=== PATIENT | female | born 1940 | race Caucasian/White ===

== ENCOUNTER → 2017-05-27 | Outpatient (CLI) | payer MEDICARE ==
[~2017-05-27] MED LIST: ALPR0.5T72 PO; ASPI-266 PO; BNZ20T PO; CLOB15CR3 TP; CLPD75T PO; HYCOSAMINE; METO25TA2 PO; MTF500T PO; NTR.4SL SL; PNT40TEC PO; PREMARIN VAG CREAM VG; SIMV40TA4 PO; SITA100T PO; VITAMIN B12 INJ; [UNRECOGNIZED DRUG - CODE] PO
--- NOTE | 2017-05-27 19:06 | Diagnostic Imaging Report ---
INDICATION: Twisting injury while cleaning floors on knees. Now with lower rib pain. TECHNIQUE: Two-view chest at 5:51 p.m. CORRELATION STUDY: None. FINDINGS: The heart size, mediastinal configuration and pulmonary vasculature are within normal limits. Lung escalante are mildly hyperinflated but overall clear without significant infiltrate, effusion, or pneumothorax. Visualized osseous structures are unremarkable. IMPRESSION: 1. No radiographic evidence for acute abnormality of the chest. Dictated by: Dictated on workstation # [id number]
--- NOTE | 2017-05-27 19:14 | Diagnostic Imaging Report ---
INDICATION: Twisting injury while cleaning floors on knees six weeks prior. Now with left-sided rib pain. TECHNIQUE: Three views of left ribs. CORRELATION STUDY: None. FINDINGS: Left ribs are intact. No acute displaced fracture. Visualized left lung field is clear. IMPRESSION: 1. Unremarkable examination of left ribs. Dictated by: Dictated on workstation # [id number]
== END ==
LOC: RAD 17:19
PROVIDERS: ATTEND Internal Medicine
DX: R07.89 Other chest pain (principal); R07.81 Pleurodynia
CPT/HCPCS: 71020; 71100

== ENCOUNTER → 2017-10-18 | Outpatient (CLI) | payer MEDICARE ==
--- NOTE | 2017-10-18 12:55 | Diagnostic Imaging Report ---
INDICATION: Left-sided rib pain and twisting injury. TIME OF EXAM: 12:22 PM. FINDINGS: Multiple views of the left ribs were obtained. No displaced rib fracture is detected. No parenchymal contusion, effusion, or pneumothorax is seen. IMPRESSION: No acute abnormality is detected. Dictated by: Dictated on workstation # [id number]
== END ==
LOC: RAD 11:50
PROVIDERS: ATTEND Internal Medicine
DX: R07.81 Pleurodynia (principal); W50.2XXA Accidental twist by another person, initial encounter
CPT/HCPCS: 71100

== ENCOUNTER 2019-06-22 20:55 | Emergency (ER) | payer MEDICARE ==
[~2019-06-22] VITALS: Ht 170.2 cm; Wt 77.3 kg
--- NOTE | 2019-06-22 21:43 | ED Back Pain ---
General Chief Complaint: Back Problems Stated Complaint: BACK SPASMS, NAUSEA Nursing Triage Note: Pt amb to room #9 with c/o Rt flank pain radiating to rt lower abd associated with nausea. Pt reports onset of symptoms to be upon rise on this day. Reports increase in severity throughout this day. Denies urinary symptoms. Pt states, "it feels like contractions." Nursing Sepsis Screen: No Definite Risk Source of Information: Patient, Family Exam Limitations: No Limitations History of Present Illness Date Seen by Provider: Jun 22, 2019 Time Seen by Provider: 21:23 Initial Comments Patient resents to ER by private conveyance with her family and chief complaint been a green party all day today and woke up around 3:00 this morning with some right low mid back pain around her costovertebral angle. It radiates towards her right flank. She says it is crampy like contraction pains. It's been off and on all throughout the day and she says she can no longer stand it so she came to the ER to have it checked out. She has no history of kidney stones. She is not having any burning itching or rash. She also has felt some epigastric indigestion and nausea at times. Pain does not seem to be worse after eating. No diarrhea or vomiting. No fevers or chills. She has a history of 2 stents years ago and is not on any blood thinners except for a daily aspirin. Allergies and Home Medications Allergies Coded Allergies: No Known Drug Allergies (Unverified , 12/25/13) Home Medications Alprazolam 0.5 Mg Tab.rapdis, 1 EACH PO HS, (Reported) Aspirin Unknown Strength Tablet.dr, Unknown Dose PO DAILY, (Reported) Benazepril Hcl 20 Mg Tab, 20 MG PO HS, (Reported) Calcium Cmb No.1-P4-Knhycpincf 1 Each Tablet, 1 EACH PO DAILY, (Reported) Clopidogrel Bisulfate 75 Mg Tab, 75 MG PO DAILY Prescribed by: JAMIL MORAN on 03/09/14 1139 Metformin Hcl 500 Mg Tablet, 1 EACH PO DAILY, (Reported) Metoprolol Tartrate 25 Mg Tablet, 1 TAB PO BID, (Reported) Nitroglycerin 0.4 Mg Subl, 0.4 MG SL NEEDED, (Reported) Pantoprazole Sodium 40 Mg Tab, 40 MG PO DAILY@0700 Prescribed by: JAMIL MORAN on 03/09/14 1139 Simvastatin 40 Mg Tablet, 40 MG PO DAILY, (Reported) Sitagliptin Phosphate 100 Mg Tablet, 1 EACH PO DAILY, (Reported) [Hycosamine Sl] , 1 TAB SL Q4H PRN for PAIN, (Reported) [Premarin Vag Cream] , 0.5 VG 2XWEEKLY, (Reported) [Vitamin B12] , INJ UD, (Reported) Patient Home Medication List Home Medication List Reviewed: Yes Review of Systems Constitutional: No chills, No fever EENTM: No ear discharge, No ear pain Respiratory: No cough, No short of breath Cardiovascular: No chest pain, No edema Gastrointestinal: No abdominal pain, No constipation, No diarrhea Past Ghhswae-Yclqqb-Suzazq Hx Patient Social History Alcohol Use: Denies Use Recreational Drug Use: No Smoking Status: Never a Smoker 2nd Hand Smoke Exposure: No Recent Foreign Travel: No Contact w/Someone Who Travel: No Recent Infectious Disease Expo: No Immunizations Up To Date Date of Pneumonia Vaccine: May 07, 2013 Past Medical History Surgeries: Yes (Cardiac stents x2) Hysterectomy Respiratory: No Cardiac: Yes Neurological: No Reproductive Disorders: No FIELD DIRECTOR History: Hysterectomy Genitourinary: No Gastrointestinal: Yes Hiatal Hernia Musculoskeletal: Yes Arthritis Endocrine: Yes Diabetes, Non-Insulin dep Cancer: No Psychosocial: No Integumentary: No Blood Disorders: No Physical Exam Vital Signs Vital Signs - First Documented 06/22/19 21:12 Temp 37.0 Pulse 81 Resp 17 B/P (MAP) 192/98 (129) Pulse Ox 97 O2 Delivery Room Air Capillary Refill : Less Than 3 Seconds Height, Weight, BMI Height: 5'7.00" Weight: 167lbs. 0.0oz. 75.037941ay; 26.00 BMI Method:Stated General Appearance: WD/WN, Mild Distress HEENT: PERRL/EOMI, Pharynx Normal, Moist Mucous Membranes Neck: Full Range of Motion, Normal Inspection Cardiovascular: Regular Rate, Rhythm, No Edema, Normal Peripheral Pulses Respiratory: No Accessory Muscle Use, No Respiratory Distress Gastrointestinal: Normal Bowel Sounds, No Organomegaly, Non Tender, Soft Back: Normal Inspection, No Vertebral Tenderness, CVA Tenderness (R); No Muscle Spasm, No Vertebral Tenderness Extremity: Normal Capillary Refill, Normal Inspection, No Pedal Edema Neurologic/Psychiatric: Alert, Oriented x3 Skin: Normal Color, Warm/Dry Progress/Results/Core Measures Results/Orders Lab Results Laboratory Tests Test 06/22/19 21:22 06/22/19 21:28 Range/Units Urine Color YELLOW Urine Clarity CLEAR Urine pH 6.5 5-9 Urine Specific Freedom 1.010 L 1.016-1.022 Urine Protein NEGATIVE NEGATIVE Urine Glucose (UA) NEGATIVE NEGATIVE Urine Ketones NEGATIVE NEGATIVE Urine Nitrite NEGATIVE NEGATIVE Urine Bilirubin NEGATIVE NEGATIVE Urine Urobilinogen NORMAL NORMAL MG/DL Urine Leukocyte Esterase NEGATIVE NEGATIVE Urine RBC (Auto) NEGATIVE NEGATIVE Urine RBC NONE /HPF Urine WBC NONE /HPF Urine Squamous Epithelial Cells 0-2 /HPF Urine Crystals NONE /LPF Urine Bacteria NEGATIVE /HPF Urine Casts NONE /LPF Urine Mucus NEGATIVE /LPF Urine Culture Indicated NO White Blood Count 7.8 4.3-11.0 10^3/uL Red Blood Count 4.18 L 4.35-5.85 10^6/uL Hemoglobin 13.2 11.5-16.0 G/DL Hematocrit 39 35-52 % Mean Corpuscular Volume 93 80-99 FL Mean Corpuscular Hemoglobin 32 25-34 PG Mean Corpuscular Hemoglobin Concent 34 32-36 G/DL Red Cell Distribution Width 12.6 10.0-14.5 % Platelet Count 229 130-400 10^3/uL Mean Platelet Volume 10.0 7.4-10.4 FL Neutrophils (%) (Auto) 57 42-75 % Lymphocytes (%) (Auto) 32 12-44 % Monocytes (%) (Auto) 10 0-12 % Eosinophils (%) (Auto) 1 0-10 % Basophils (%) (Auto) 0 0-10 % Neutrophils # (Auto) 4.5 1.8-7.8 X 10^3 Lymphocytes # (Auto) 2.5 1.0-4.0 X 10^3 Monocytes # (Auto) 0.7 0.0-1.0 X 10^3 Eosinophils # (Auto) 0.1 0.0-0.3 10^3/uL Basophils # (Auto) 0.0 0.0-0.1 10^3/uL Sodium Level 140 135-145 MMOL/L Potassium Level 3.9 3.6-5.0 MMOL/L Chloride Level 105 98-107 MMOL/L Carbon Dioxide Level 24 21-32 MMOL/L Anion Gap 11 5-14 MMOL/L Blood Urea Nitrogen 16 7-18 MG/DL Creatinine 1.20 0.60-1.30 MG/DL Estimat Glomerular Filtration Rate 44 BUN/Creatinine Ratio 13 Glucose Level 119 H 70-105 MG/DL Calcium Level 9.7 8.5-10.1 MG/DL Corrected Calcium 9.3 8.5-10.1 MG/DL Total Bilirubin 0.3 0.1-1.0 MG/DL Aspartate Amino Transf (AST/SGOT) 22 5-34 U/L Alanine Aminotransferase (ALT/SGPT) 15 0-55 U/L Alkaline Phosphatase 80 40-136 U/L Total Protein 7.3 6.4-8.2 GM/DL Albumin 4.5 3.2-4.5 GM/DL Lipase 32 8-78 U/L My Orders Orders - NEMESIO CUEVAS Cbc With Automated Diff (06/22/19 21:32) Comprehensive Metabolic Panel (06/22/19 21:32) Ua Culture If Indicated (06/22/19 21:32) Ketorolac Injection (Toradol Injection) (06/22/19 21:45) Ed Iv/Invasive Line Start (06/22/19 21:32) Lipase (06/22/19 21:37) Ed Iv/Invasive Line Start (06/22/19 22:03) Ns Iv 1000 Ml (Sodium Chloride 0.9%) (06/22/19 22:03) Iohexol Injection (Omnipaque 350 Mg/Ml 1 (06/22/19 22:30) Ns (Ivpb) (Sodium Chloride 0.9% Ivpb Bag (06/22/19 22:30) Medications Given in ED Current Medications Medications Dose Ordered Sig/Rebecca Route Start Time Stop Time Status Last Admin Dose Admin Iohexol 100 ml ONCE ONCE IV 06/22/19 22:30 06/22/19 23:10 DC 06/22/19 22:36 100 ML Ketorolac Tromethamine 30 mg ONCE ONCE IVP 06/22/19 21:45 06/22/19 21:46 DC 06/22/19 21:40 30 MG Sodium Chloride 80 ml ONCE ONCE IV 06/22/19 22:30 06/22/19 23:10 DC 06/22/19 22:36 80 ML Vital Signs/I&O 06/22/19 21:12 Temp 37.0 Pulse 81 Resp 17 B/P (MAP) 192/98 (129) Pulse Ox 97 O2 Delivery Room Air Blood Pressure Mean: 129 POS Progress Progress Note : Time: 21:42 Progress Note Kidney stone, much less likely large intestine versus gallbladder pancreas. We'll obtain labs and treating lipase. Urinalysis. If there is blood in the urine and plan to do a CT without IV contrast. Diagnostic Imaging Diagonstic Imaging: CT Plain Films/CT/US/NM/MRI: abdomen, pelvis Comments 1-2 mm stone in the right distal ureter with mild upstream hydronephrosis. Multi septated left ovarian cystic lesion measuring 6.2 x 5.4 x 7.1 cm significantly increased in size from prior imaging. 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 Recommend pelvic ultrasound and/or pelvic MRI as an outpatient. Sigmoid diverticulosis without diverticulitis. Dilated intrahepatic and extrahepatic biliary tree, and common bile duct measuring 1.1 cm without obstructing stone or mass. Reviewed: Reviewed by Me Departure Impression Primary Impression: Ureteral calculus, right Additional Impression: Ovarian mass, left Disposition: 01 HOME, SELF-CARE Condition: Improved Departure-Patient Inst. Decision time for Depature: 23:53 Referrals: JAMIL MORAN DO (PCP/Family) Primary Care Physician NAVA DAWSON MD Patient Instructions: How to Strain Your Urine, Kidney Stones (DC) Add. Discharge Instructions: All discharge instructions reviewed with patient and/or family. Voiced understanding. Scripts Cephalexin (Keflex) 500 Mg Capsule 500 MG PO BID for 7 Days, #14 CAP 0 Refills Prov: NEMESIO CUEVAS 06/23/19 Ondansetron (Ondansetron Odt) 4 Mg Tab.rapdis 4 MG PO Q6H PRN for NAUSEA/VOMITING, #8 TAB 0 Refills Prov: NEMESIO CUEVAS 06/23/19 Hydrocodone Bit/Acetaminophen (Hydrocodone/Acetaminophen 5/325mg Tablet) 1 Tab Tab 1 EACH PO Q4-6HR PRN for PAIN-MODERATE MDD 10 for 3 Days, #14 TAB 0 Refills Prov: NEMESIO CUEVAS 06/23/19 Tamsulosin HCl (Flomax) 0.4 Mg Cap 0.4 MG PO DAILY for 7 Days, #7 CAP 0 Refills Prov: NEMESIO CUEVAS 06/23/19 Copy Copies To 1: JAMIL MORAN TITUS J Jun 22, 2019 21:43 POS
[2019-06-22] MEDS ORDERED: KETOROLAC 30 MG/ML VIAL IVP ONE (21:45)
[2019-06-22 21:50] LABS: BASOPHILS % (AUTO) 0 % (0-10); EOSINOPHILS # (AUTO) 0.1 10^3/uL (0.0-0.3); EOSINOPHILS % (AUTO) 1 % (0-10); HEMATOCRIT 39 % (35-52); HEMOGLOBIN 13.2 G/DL (11.5-16.0); LYMPHOCYTES # (AUTO) 2.5 X 10^3 (1.0-4.0); LYMPHOCYTES % (AUTO) 32 % (12-44); MEAN CORPUSCULAR HEMOGLOBIN 32 PG (25-34); MEAN CORPUSCULAR HGB CONC 34 G/DL (32-36); MEAN CORPUSCULAR VOLUME 93 FL (80-99); MONOCYTES # (AUTO) 0.7 X 10^3 (0.0-1.0); MONOCYTES % (AUTO) 10 % (0-12); NEUTROPHILS # (AUTO) 4.5 X 10^3 (1.8-7.8); NEUTROPHILS % (AUTO) 57 % (42-75); PLATELET COUNT 229 10^3/uL (130-400); RED CELL DISTRIBUTION WIDTH 12.6 % (10.0-14.5); WHITE BLOOD COUNT 7.8 10^3/uL (4.3-11.0)
[2019-06-22 21:57] LABS: BILIRUBIN,URINE NEGATIVE (NEGATIVE); GLUCOSE, URINE (UA) NEGATIVE (NEGATIVE); KETONES,URINE NEGATIVE (NEGATIVE); LEUKOCYTE ESTERASE ,URINE NEGATIVE (NEGATIVE); NITRITE,URINE NEGATIVE (NEGATIVE); PH,URINE 6.5 (5-9); PROTEIN,URINE NEGATIVE (NEGATIVE)
[2019-06-22 21:58] LABS: BACTERIA,URINE NEGATIVE /HPF; CLARITY,URINE CLEAR; COLOR,URINE YELLOW; SQUAMOUS EPITHELIAL CELL,UR 0-2 /HPF
[2019-06-22] MEDS ORDERED: NS IV 1000 ML 1,000 ML IV SCH (22:03)
[2019-06-22 22:10] LABS: ALBUMIN 4.5 GM/DL (3.2-4.5); CALCIUM 9.7 MG/DL (8.5-10.1); CREATININE SERUM 1.2 MG/DL (0.60-1.30); POTASSIUM 3.9 MMOL/L (3.6-5.0); TOTAL PROTEIN 7.3 GM/DL (6.4-8.2)
[2019-06-22] MEDS ORDERED: IOHEXOL 350 MG/ML 100 ML (OMNIPAQUE 350) VIAL IV ONE (22:30)
[2019-06-22] MEDS ORDERED: NS 100 ML (IVPB) BAG IV ONE (22:30)
[2019-06-22 22:40] LABS: BILIRUBIN,TOTAL 0.3 MG/DL (0.1-1.0)
[2019-06-23] MEDS ORDERED: TMSL.4C PO (00:05)
[2019-06-23] MEDS ORDERED: ACHD5005 PO (00:05)
[2019-06-23] MEDS ORDERED: CEPH-507 PO (00:05)
[2019-06-23] MEDS ORDERED: ONDA4TAB11 PO (00:05)
[2019-06-23] MEDS ORDERED: RX-ONDANSETRON 4 MG ODT (ZOFRAN) PPK #4 PO STA (00:06)
[2019-06-23] MEDS ORDERED: RX-HYDROCODONE/APAP 5/325 MG #4 TAB PK PO PRN (00:15)
[2019-06-23 00:19] VITALS: BP 167/106
--- NOTE | 2019-06-23 06:22 | Diagnostic Imaging Report ---
PROCEDURE: CT abdomen and pelvis with contrast, rule out appendicitis. TECHNIQUE: Multiple contiguous axial images were obtained through the abdomen and pelvis after the administration of intravenous contrast. INDICATION: Abdominal pain. COMPARISON: CT abdomen and pelvis without contrast 06/19/2016. FINDINGS: Stable 0.7 cm pulmonary nodule in the left costophrenic angle should be benign. Simple cysts in the liver. The gallbladder, pancreas, spleen and adrenals are negative. Simple appearing cysts in both kidneys. Prominent caliber right ureter above the level of the pelvic brim without obstructing lesion identified, may be physiologic. The left ureter is negative. Partially opacified bladder is unremarkable. Advanced colonic diverticulosis. Indeterminate lobulated cystic structure in the left pelvis measures 6.5 x 6.3 cm, previously 3.3 x 3.7 cm. Hysterectomy. No free intraperitoneal air or fluid. No lymphadenopathy. No evidence of bowel obstruction or inflammation. No acute osseous findings. IMPRESSION: 1. Advanced colonic diverticulosis without evidence of active diverticulitis. 2. Lobulated cystic mass in the left pelvis has generally benign features. This has grown from approximately 3.7 cm on 06/19/2016 to 6.5 cm today. This may be ovarian in origin. Other diagnostic considerations might include a lymphocele. The uterus is surgically absent. 3. Mild right ureterectasis to the level of the pelvic brim without obstructing lesion identified. This may be physiologic and is only mildly more prominent compared to the 2016 exam. Dictated by: Dictated on workstation # [id number]
== END 2019-06-23 00:19 | disposition home or self-care (01) ==
LOC: EDUNIT# 20:55 → ER 20:57
DX: N13.2 Hydronephrosis with renal and ureteral calculous obstruction (principal); N83.8 Other noninflammatory disorders of ovary, fallopian tube and broad ligament; E11.9 Type 2 diabetes mellitus without complications; Z79.82 Long term (current) use of aspirin; Z79.02 Long term (current) use of antithrombotics/antiplatelets; Z79.84 Long term (current) use of oral hypoglycemic drugs; Z90.710 Acquired absence of both cervix and uterus; Z95.5 Presence of coronary angioplasty implant and graft
CPT/HCPCS: 36415; 74177; 80053; 81000; 83690; 85025; 96361; 96374

== ENCOUNTER → 2019-07-25 | Outpatient (CLI) | payer MEDICARE ==
[~2019-07-25] MED LIST changes: +ACHD5005 PO; +CEPH-507 PO; +NITR-65 PO; +ONDA4TAB11 PO; +TAMS0.4C98 PO; +TRAM50TA2 PO
--- NOTE | 2019-07-25 14:33 | Diagnostic Imaging Report ---
INDICATION: Right-sided kidney stone. TIME OF EXAMINATION: 12:45 PM. FINDINGS: A single view of the abdomen demonstrates the bowel gas pattern to be unremarkable. Pelvic calcifications are noted, consistent with phleboliths. No definite radiopaque urinary tract calculi are seen. IMPRESSION: No radiopaque urinary tract calculi are detected. Dictated by: Dictated on workstation # [id number]
== END ==
LOC: RAD 12:21
PROVIDERS: ATTEND Internal Medicine
DX: N83.292 Other ovarian cyst, left side (principal)
CPT/HCPCS: 74018

== ENCOUNTER → 2019-07-25 | Outpatient (CLI) | payer MEDICARE | END | disposition home or self-care (01) | LOC: PREOP 15:22 | PROVIDERS: ATTEND Urology | DX: Z01.818 Encounter for other preprocedural examination (principal) ==

== ENCOUNTER 2019-07-26 07:14 | Day surgery (SDC) | payer MEDICARE ==
[~2019-07-26] VITALS: Ht 168 cm; Wt 81.4 kg
[2019-07-26] VITALS (11 sets, daily range): BP systolic 109–141; BP diastolic 62–79
[~2019-07-26 07:14] MED LIST changes: -NITR-65 PO; -TAMS0.4C98 PO; +TMSL.4C PO; -TRAM50TA2 PO
[2019-07-26] MEDS ORDERED: cefTRIAXone FOR IV USE 1,000 MG in WATER (STERILE) FOR INJECTION 10 ML IV ONE (07:45)
[2019-07-26] MEDS ORDERED: TRM50T PO (07:46)
--- NOTE | 2019-07-26 07:48 | Progress Note-Pre Operative ---
Pre-Operative Progress Note H&P Reviewed The H&P was reviewed, patient examined and no changes noted. Date Seen by Provider: Jul 26, 2019 Time Seen by Provider: 07:48 Date H&P Reviewed: Jul 26, 2019 Time H&P Reviewed: 07:48 Pre-Operative Diagnosis: RT URETERAL STONE NAVA DAWSON MD Jul 26, 2019 07:48 POS
[2019-07-26] MEDS: LACTATED RINGERS 1,000 ML IV PRN ×2 (08:19→11:37)
[2019-07-26] MEDS ORDERED: fentaNYL INJECTION 100 MCG/2 ML AMP IV ONE (08:30)
[2019-07-26] MEDS ORDERED: fentaNYL INJECTION 100 MCG/2 ML AMP ONE ×2 (08:38→08:49)
[2019-07-26] MEDS ORDERED: ONDANSETRON 4 MG/2 ML (SDV) Z0FRAN ONE (08:49)
[2019-07-26] MEDS ORDERED: ROCURONIUM 10 MG/ML 5 ML SYRINGE IV ONE (08:49)
[2019-07-26] MEDS ORDERED: LIDOCAINE PF 2% 5 ML (XYLOCAINE) VIAL ONE (08:49)
[2019-07-26] MEDS ORDERED: proPOfol 200 MG/20 ML (DIPRIVAN) VIAL IV ONE (08:49)
[2019-07-26] MEDS ORDERED: DEXAMETHASONE 10 MG/ML (DECADRON) 1 ML VIAL ONE (08:49)
[2019-07-26] MEDS ORDERED: IOPAMIDOL 61% 30 ML (ISOVUE 300) VIAL IV ONE (08:50)
[2019-07-26] MEDS ORDERED: FUROSEMIDE 40 MG/4 ML INJ (LASIX) ONE (08:52)
[2019-07-26] MEDS ORDERED: KETOROLAC 30 MG/ML VIAL ONE (08:52)
--- NOTE | 2019-07-26 08:59 | Diagnostic Imaging Report ---
INDICATION: Calculus. Compared 07/25/2019 FINDINGS: Multiple pelvic calcifications largely if not entirely reflective of phleboliths are unchanged from prior. There is no bowel obstruction. No radiodense renal calcifications. IMPRESSION: Calcifications believed phleboliths. Dictated by: Dictated on workstation # [id number]
[2019-07-26] MEDS ORDERED: SEVOFLURANE (ULTANE) 15 ML INHAL SOLN ONE (10:35)
[2019-07-26] MEDS ORDERED: NEOSTIGMINE 3 MG/3 ML VIAL ONE (10:42)
[2019-07-26] MEDS ORDERED: GLYCOPYRROLATE 0.2 MG/ML (ROBINUL) 2 ML VIAL ONE (10:42)
--- NOTE | 2019-07-26 10:59 | Progress Note-Post Operative ---
Post-Operative Progess Note Surgeon (s)/Car Runner (s) Surgeon NAVA DAWSON MD Car Runner: NONE Pre-Operative Diagnosis RT URETERAL STONE Post-Operative Diagnosis SAME Procedure & Operative Findings Date of Procedure 07/26/19 Procedure Performed/Findings CYSTOSCOPY, RT RETROGRADE UROGRAM, AND RT URETEROSCOPY Anesthesia Type GENERAL Estimated Blood Loss Estimated blood loss (mL): NONE Specimens/Packing Specimens Removed NONE Packing: NONE NAVA DAWSON MD Jul 26, 2019 10:59 POS
--- NOTE | 2019-07-26 11:01 | Discharge Inst-Urology ---
Discharge Inst-Urology Reconcile Patient Problems Problems Reviewed?: Yes Final Diagnosis RT URETERAL STONE Patient Instructions/Follow Up Plan/Assessment/Instructions Please make appointment to been seen in office in 1 week Increase oral fluids for 48 hours and then as needed. Diet and Activity as tolerated. If questions or concerns contact your physician Or seek help at emergency department. NAVA DAWSON MD Jul 26, 2019 11:01 POS
[2019-07-26] MEDS ORDERED: morphine INJ 10 MG/ML 1ML (SYR OR VIAL) ONE (11:11)
[2019-07-26] MEDS ORDERED: morphine INJ 10 MG/ML 1ML (SYR OR VIAL) IVP ONE (11:15)
[2019-07-26] MEDS ORDERED: ONDANSETRON 4 MG/2 ML (SDV) Z0FRAN IVP PRN (11:15)
[2019-07-26] MEDS ORDERED: NITR-65 PO (11:57)
--- NOTE | 2019-07-26 17:33 | OPERATIVE REPORT ---
DATE OF SERVICE: 07/26/2019 PREOPERATIVE DIAGNOSIS: Right distal ureteral stone. POSTOPERATIVE DIAGNOSIS: Right distal ureteral stone. OPERATION PERFORMED: Cystoscopy, right retrograde urogram, right ureteroscopy. SURGEON: Jamil Dawson MD ANESTHESIA: General. COMPLICATIONS: None. DESCRIPTION OF PROCEDURE: Under satisfactory general anesthesia, the patient in lithotomy position, genitalia were prepped and draped in the usual sterile fashion. Noted a 3+ cystocele. Cystoscope was introduced in the bladder, which was essentially normal except for the cystocele. I went ahead and passed a 5-Mosotho and then a 6-Mosotho ureteral catheter into the right ureteral orifice dilated and to perform a retrograde urogram that showed no filling defects whatsoever. There was some narrowing of the ureter at the pelvic brim with mild dilatation, but no filling defect and complete emptying and good peristalsis of that segment as well as the whole ureter, which was completely emptied on withdrawing the catheter. I went ahead and removed the cystoscope, introduced the ureteroscope and again did not encounter any stone and up to the level of the questionable area. Again, no stones confirmed in an antegrade fashion, removed the ureteroscope. I reinserted the cystoscope to empty the bladder. The patient tolerated the procedure and anesthesia well and was sent to recovery room in stable condition. PLAN: We will see her back in the office in a week. If any question, I will order a noncontrast CT scan of the abdomen and pelvis. This was fully explained to her family. Job ID: [id number] DocumentID: [id number] Dictated Date: 07/26/2019 11:03:40 Heel Layer Date: 07/26/2019 17:32:47 Dictated By: JAMIL DAWSON MD
--- OUTSIDE RECORDS SUMMARY | 2019-08-20 19:24 | XMS REPORT | Continuity of Care Document ---
Author Organization Unknown Address Unknown Phone Unavailable Allergies Active Description Code Type Severity Reaction Onset Reported/Identified Relationship to Patient Clinical Status Yes No Known Drug Allergies [id number] Drug Allergy Unknown N/A 12/25/2013 Medications There is no data. Problems Date Dx Coded Attending Type Code Diagnosis Diagnosed By 02/02/2014 SUNIL HASSAN, GINGER Johnson Ot 530. 81 ESOPHAGEAL REFLUX 02/02/2014 GINGER BARBER MD Ot 553. 3 DIAPHRAGMATIC HERNIA 02/02/2014 GINGER BARBER MD Ot 562. 10 DIVERTICULOSIS COLON (W/O MENT OF HEMORR 02/02/2014 GINGER BARBER MD Ot V76. 51 SCREEN MAL NEOP-COLON 03/09/2014 Manolo CARLSON MD Ot 250.00 DIAB EBONI WO COMPL, TYPE II OR UNSPEC TY 03/09/2014 Manolo CARLSON MD Ot 272 .4 HYPERLIPIDEMIA NEC/NOS 03/09/2014 Manolo CARLSON MD Ot 300.00 ANXIETY STATE NOS 03/09/2014 Manolo CARLSON MD Ot 401 .9 HYPERTENSION NOS 03/09/2014 Manolo CARLSON MD Ot 411 .1 INTERMED CORONARY SYND 03/09/2014 Manolo CARLSON MD Ot 414.01 CORONARY ATHEROSCLEROSIS OF [place] CORON 03/09/2014 Manolo CARLSON MD Ot 414 .2 CHRONIC TOTAL OCCLUSION OF CORONARY [place] 03/09/2014 Manolo CARLSON MD Ot 414 .4 CORONARY ATHEROSCLEROSIS DUE TO [place] 03/09/2014 Manolo CARLSON MD Ot 553 .3 DIAPHRAGMATIC HERNIA 03/09/2014 Manolo CARLSON MD Ot V45.82 PERCUTANEOUS TRANSLUM CORON ANGIOPLASTY 03/09/2014 Manolo CARLSON MD Ot V58.69 OT MED,LT,CURRENT USE 06/23/2016 JAMIL MORAN DO Ot K76.89 OTHER SPECIFIED DISEASES OF LIVER 06/23/2016 MORAN DO, JAMIL Hubert Ot R10.13 EPIGASTRIC PAIN 07/10/2016 MORAN DO, JAMIL Hubert Ot K76.89 OTHER SPECIFIED DISEASES OF LIVER 07/10/2016 MORAN DO, JAMIL Hubert Ot R10.13 EPIGASTRIC PAIN 07/20/2016 MORAN DO, JAMIL Hubert Ot K76.89 OTHER SPECIFIED DISEASES OF LIVER 07/20/2016 MORAN DO, JAMIL Gaspar Ot R10.13 EPIGASTRIC PAIN 06/18/2017 MORAN DO, JAMIL Gaspar Ot R07.81 PLEURODYNIA 06/18/2017 MORAN DO, JAMIL Hubert Ot R07.89 OTHER CHEST PAIN 06/23/2017 MORAN DOJAMIL Ot R07.81 PLEURODYNIA 06/23/2017 MORAN DO JAMIL Hubert Ot R07.89 OTHER CHEST PAIN 10/18/2017 MORAN DOJAMIL Ot R07.81 PLEURODYNIA 10/18/2017 JAMIL MORAN DO Ot W50.2XXA ACCIDENTAL TWIST BY ANOTHER PERSON, INIT 11/09/2017 JAMIL MORAN DO Ot R07.81 PLEURODYNIA 11/09/2017 MORAN DO JAMIL Hubert Ot W50.2XXA ACCIDENTAL TWIST BY ANOTHER PERSON, INIT 11/10/2017 JAMIL MORAN DO Ot R07.81 PLEURODYNIA 11/10/2017 MORAN JAMIL MEREDITH Ot W50.2XXA ACCIDENTAL TWIST BY ANOTHER PERSON, INIT 06/23/2019 NEMESIO CUEVAS MD Ot E11. 9 TYPE 2 DIABETES MELLITUS WITHOUT COMPLIC 06/23/2019 NEMESIO CUEVAS MD Ot N13. 2 HYDRONEPHROSIS WITH RENAL AND URETERAL C 06/23/2019 NEMESIO CUEVAS MD Ot N83. 8 OTH NONINFLAMMATORY DISORD OF OVARY, FAL 06/23/2019 NEMESIO CUEVAS MD Ot R11. 0 NAUSEA 06/23/2019 NEMESIO CUEVAS MD, Ot Z79. 02 RESIDENTIAL (CURRENT) USE OF ANTITHROMBOTI 06/23/2019 NEMESIO CUEVAS MD, Ot Z79. 82 RESIDENTIAL (CURRENT) USE OF ASPIRIN 06/23/2019 NEMESIO CUEVAS MD, Ot Z79. 84 RESIDENTIAL (CURRENT) USE OF ORAL HYPOGLYC 06/23/2019 NEMESIO CUEVAS MD Ot Z90.710 ACQUIRED ABSENCE OF BOTH CERVIX AND UTER 06/23/2019 NEMESIO CUEVAS MD Ot Z95. 5 PRESENCE OF CORONARY ANGIOPLASTY IMPLANT 06/23/2019 TASHA KRAFT MD Ot 573.8 LIVER DISORDERS NEC 06/23/2019 TASHA KRAFT MD Ot 789.01 ABDOMINAL PAIN, RIGHT UPPER QUADRANT 06/23/2019 MORAN DOJAMIL Ot 789.00 ABDOMINAL PAIN, UNSPECIFIED SITE 06/23/2019 GINGER BARBER MD Ot V72. 84 EXAM PRE-OPERATIVE NOS 06/23/2019 MORAN DO, JAMIL Gaspar Ot K76.89 OTHER SPECIFIED DISEASES OF LIVER 06/23/2019 MORAN DOJAMIL Ot R10.13 EPIGASTRIC PAIN 06/23/2019 MORAN DOJAMIL Ot R07.81 PLEURODYNIA 06/23/2019 MORANJAMIL MORALES DO Ot R07.89 OTHER CHEST PAIN 06/23/2019 MORAN DO, JAMIL Gaspar Ot R07.81 PLEURODYNIA 06/23/2019 MORANJAMIL MORALES DO Ot W50.2XXA ACCIDENTAL TWIST BY ANOTHER PERSON, INIT 07/28/2019 NAVA DAWSON MD, Ot Z01.8 18 ENCOUNTER FOR OTHER PREPROCEDURAL EXAMIN 07/31/2019 NAVA DAWSON MD, Ot I10 ESSENTIAL (PRIMARY) HYPERTENSION 07/31/2019 NAVA DAWSON MD, Ot I25.1 0 ATHSCL HEART DISEASE OF [place] CORONARY 07/31/2019 NAVA DAWSON MD, Ot K21.9 GASTRO-ESOPHAGEAL REFLUX DISEASE WITHOUT 07/31/2019 NAVA DAWSON MD, Ot N20.1 CALCULUS OF URETER 07/31/2019 NAVA DAWSON MD, Ot Z87.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 07/31/2019 NAVA DAWSON MD, Ot Z90.7 10 ACQUIRED ABSENCE OF BOTH CERVIX AND UTER 07/31/2019 NAVA DAWSON MD, Ot Z95.5 PRESENCE OF CORONARY ANGIOPLASTY IMPLANT 08/03/2019 NAVA DAWSON MD, Ot I10 ESSENTIAL (PRIMARY) HYPERTENSION 08/03/2019 NAVA DAWSON MD, Ot I25.1 0 ATHSCL HEART DISEASE OF [place] CORONARY 08/03/2019 NAVA DAWSON MD, Ot K21.9 GASTRO-ESOPHAGEAL REFLUX DISEASE WITHOUT 08/03/2019 NAVA DAWSON MD, Ot N20.1 CALCULUS OF URETER 08/03/2019 NAVA DAWSON MD, Ot Z87.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 08/03/2019 NAVA DAWSON MD, Ot Z90.7 10 ACQUIRED ABSENCE OF BOTH CERVIX AND UTER 08/03/2019 NAVA DAWSON MD, Ot Z95.5 PRESENCE OF CORONARY ANGIOPLASTY IMPLANT 08/11/2019 NAVA DAWSON MD, Ot K57.9 0 DVRTCLOS OF INTEST, PART UNSP, W/O PERF 08/11/2019 NAVA DAWSON MD, Ot K80.2 0 CALCULUS OF GALLBLADDER W/O CHOLECYSTITI 08/11/2019 NAVA DAWSON MD, Ot N20.1 CALCULUS OF URETER 08/11/2019 NAVA DAWSON MD, Ot N28.1 CYST OF KIDNEY, ACQUIRED Procedures There is no data. Results Test Result Range Complete urinalysis with reflex to cultu re - 06/22/19 21:22 Urine color determination YELLOW NRG Urine clarity determination CLEAR NR G Urine pH measurement by test strip 6.5 5-9 Specific gravity of urine by test strip 1.010 1.016-1.022 Urine protein assay by test strip, semi-quantitative NEGATIVE NEGATIVE Urine glucose detection by automated test strip NE GATIVE NEGATIVE Erythrocytes detection in urine sediment by light micr oscopy NEGATIVE NEGATIVE Urine ketones detection by automated test strip NE GATIVE NEGATIVE Urine nitrite detection by test strip NEGATIVE NEGATIVE Urine total bilirubin detection by test strip NEGA TIVE NEGATIVE Urine urobilinogen measurement by automated test strip (mass/volume) NORMAL NORMAL Urine leukocyte esterase detection by dipstick NEG ATIVE NEGATIVE Automated urine sediment erythrocyte cou nt by microscopy (number/high power field) NONE NRG Automated urine sediment leukocyte count by microscopy (number/high power field) NONE NRG Bacteria detection in urine sediment by light microsco py NEGATIVE NRG Squamous epithelial cells detection in u rine sediment by light microscopy 0-2 NRG Crystals detection in urine sediment by light microsco py NONE NRG Casts detection in urine sediment by light microscopy NONE NRG Mucus detection in urine sediment by light microscopy NEGATIVE NRG Complete urinalysis with reflex to culture NO NRG Complete blood count (CBC) with automate d white blood cell (WBC) differential - 06/22/19 21:28 Blood leukocytes automated count (number/volume) 7.8 10*3/uL 4.3-11.0 Blood erythrocytes automated count (number/volume) 4.18 10*6/uL 4.35-5.85 Venous blood hemoglobin measurement (mass/volume) 13.2 g/dL 11.5-16.0 Blood hematocrit (volume fraction) 39 % 35-52 Automated erythrocyte mean corpuscular volume 93 [ foz_us] 80-99 Automated erythrocyte mean corpuscular h emoglobin (mass per erythrocyte) 32 pg 25-34 Automated erythrocyte mean corpuscular h emoglobin concentration measurement (mass/volume) 34 g/dL 32-36 Automated erythrocyte distribution width ratio 12. 6 % 10.0- 14.5 Automated blood platelet count (count/volume) 229 10*3/uL 130-400 Automated blood platelet mean volume measurement 10.0 [foz_us] 7.4-10.4 Automated blood neutrophils/100 leukocytes 57 % 42-75 Automated blood lymphocytes/100 leukocytes 32 % 12-44 Blood monocytes/100 leukocytes 10 % 0-12 Automated blood eosinophils/100 leukocytes 1 % 0-10 Automated blood basophils/100 leukocytes 0 % 0-10 Blood neutrophils automated count (number/volume) 4.5 10*3 1.8-7.8 Blood lymphocytes automated count (number/volume) 2.5 10*3 1.0-4.0 Blood monocytes automated count (number/volume) 0. 7 10*3 0.0-1.0 Automated eosinophil count 0.1 10*3/uL 0 .0-0.3 Automated blood basophil count (count/volume) 0.0 10*3/uL 0.0-0.1 Comprehensive metabolic panel - 06/22/19 21:28 Serum or plasma sodium measurement (moles/volume) 140 mmol/L 135-145 Serum or plasma potassium measurement (moles/volume) 3.9 mmol/L 3.6-5.0 Serum or plasma chloride measurement (moles/volume) 105 mmol/L 98-107 Carbon dioxide 24 mmol/L 21-32 Serum or plasma anion gap determination (moles/volume) 11 mmol/L 5-14 Serum or plasma urea nitrogen measurement (mass/volume ) 16 mg/dL 7-18 Serum or plasma creatinine measurement (mass/volume) 1.20 mg/dL 0.60-1.30 Serum or plasma urea nitrogen/creatinine mass ratio 13 NRG Serum or plasma creatinine measurement w ith calculation of estimated glomerular filtration rate 44 NRG Serum or plasma glucose measurement (mass/volume) 119 mg/dL 70-105 Serum or plasma calcium measurement (mass/volume) 9.7 mg/dL 8.5-10.1 Serum or plasma total bilirubin measurement (mass/volu me) 0.3 mg/dL 0.1-1.0 Serum or plasma alkaline phosphatase mekhi surement (enzymatic activity/volume) 80 U/L 40-136 Serum or plasma aspartate aminotransfera se measurement (enzymatic activity/volume) 22 U/L 5-34 Serum or plasma alanine aminotransferase measurement (enzymatic activity/volume) 15 U/L 0-55 Serum or plasma protein measurement (mass/volume) 7.3 g/dL 6.4-8.2 Serum or plasma albumin measurement (mass/volume) 4.5 g/dL 3.2-4.5 CALCIUM CORRECTED 9.3 mg/dL 8.5-10.1 Lipase - 06/22/19 21:28 Lipase 32 U/L 8-78 Methicillin resistant Staphylococcus aur eus (MRSA) screening culture - 07/26/19 07:45 Methicillin resistant Staphylococcus aureus (MRSA) scr eening culture NEG NRG Encounters ACCT No. Visit Date/Time Discharge Status Pt. Type Provider Facility Loc./Unit Complaint [id number] 08/10/2019 14:51:00 23:59:59 CLS Outpatient NAVA DAWSON MD [facility] RAD RT URETERAL STONE [id number] 07/26/2019 07:14:00 13:00:00 DIS Outpatient NAVA DAWSON MD [facility] SDC RIGHT URETERAL STONE [id number] 07/25/2019 15:22:00 23:59:59 CLS Outpatient NAVA DAWSON MD [facility] PREOP RIGHT URETERAL STONE [id number] 07/25/2019 12:21:00 23:59:59 CLS Outpatient JAMIL MORAN DO [facility] RAD KUB [id number] 06/22/2019 20:57:00 00:19:00 DIS Emergency NEMESIO CUEVAS MD [facility] ER BACK SPASMS, NAUSEA [id number] 10/18/2017 11:50:00 23:59:59 CLS Outpatient JAMIL MORAN DO [facility] RAD R07.89 [id number] 05/27/2017 17:19:00 23:59:59 CLS Outpatient JAMIL MORAN DO [facility] RAD RU7.89 [id number] 06/19/2016 11:57:00 23:59:59 CLS Outpatient JAMIL MORAN DO [facility] RAD R10.13 [id number] 03/06/2014 19:31:00 12:10:00 DIS Outpatient Manolo CARLSON MD [facility] CATH CHEST PAIN [id number] 02/02/2014 07:59:00 12:25:00 DIS Outpatient GINGER BARBER MD [facility] SDC EPIGASTRIC PAIN; SCREEN ING [id number] 02/01/2014 07:18:00 23:59:59 CLS Outpatient GINGER BARBER MD [facility] PREOP EPIGASTRIC PAIN; SCREEN ING [id number] 01/26/2014 06:25:00 23:59:59 CLS Outpatient JAMIL MORAN DO [facility] CARD ABD PAIN [id number] 01/01/2014 07:49:00 23:59:59 CLS Outpatient TASHA KRAFT MD [facility] RAD RUQ PAIN, [id number] 12/25/2013 16:11:00 19:21:00 DIS Emergency
== END 2019-07-26 13:00 | disposition home or self-care (01) ==
LOC: SDC 07:14
PROVIDERS: ATTEND Urology
DX: N20.1 Calculus of ureter (principal); I10 Essential (primary) hypertension; I25.10 Atherosclerotic heart disease of native coronary artery without angina pectoris; K21.9 Gastro-esophageal reflux disease without esophagitis; Z95.5 Presence of coronary angioplasty implant and graft; Z90.710 Acquired absence of both cervix and uterus; Z87.891 Personal history of nicotine dependence
CPT/HCPCS: 74018; 87081

== ENCOUNTER → 2019-08-10 | Outpatient (CLI) | payer MEDICARE ==
[~2019-08-10] MED LIST changes: +NITR-65 PO; +TAMS0.4C98 PO; -TMSL.4C PO; +TRAM50TA2 PO
--- NOTE | 2019-08-10 15:50 | Diagnostic Imaging Report ---
PROCEDURE: CT urinary tract, rule out kidney stone. TECHNIQUE: Multiple contiguous axial images were obtained through the abdomen and pelvis without the use of intravenous contrast. Auto Exposure Controls were utilized during the CT exam to meet ALARA standards for radiation dose reduction. INDICATION: Right lower quadrant pain. COMPARISON: Comparison made with prior examination from 06/22/2019. FINDINGS: The heart size is normal. The lung bases are clear. The liver is normal in size. There appears to be cholelithiasis. There is no biliary ductal dilatation. Spleen is normal. The pancreas and adrenal glands are unremarkable. There is a cyst in the right kidney. There is no evidence of nephrolithiasis or obstructive uropathy. There is some atherosclerotic calcification of the aorta which is nonaneurysmal. There is diverticular disease without evidence of diverticulitis. There is no free air. There is no ascites. There are no focal inflammatory changes. There is a cystic mass in the left hemipelvis measuring 6.9 x 6.3 cm. There are mild degenerative changes in the spine. IMPRESSION: 1. Cholelithiasis. 2. Diverticular disease without evidence of diverticulitis. 3. Right renal cyst 4. Unchanged cystic mass in the left hemipelvis, this is likely of ovarian origin however other etiologies such as lymphocele is also consideration. 5. No other acute abnormality in the abdomen or pelvis. Dictated by: Dictated on workstation # [id number]
== END ==
LOC: RAD 14:51
PROVIDERS: ATTEND Urology
DX: N20.1 Calculus of ureter (principal); K80.20 Calculus of gallbladder without cholecystitis without obstruction; K57.90 Diverticulosis of intestine, part unspecified, without perforation or abscess without bleeding; N28.1 Cyst of kidney, acquired
CPT/HCPCS: 74176

== ENCOUNTER → 2019-11-01 | Outpatient (CLI) | payer MEDICARE ==
[~2019-11-01] MED LIST changes: -TAMS0.4C98 PO; +TMSL.4C PO; -TRAM50TA2 PO; +TRM50T PO
[2019-11-01 07:45] LABS: BUN/CREATININE RATIO 14; CREATININE SERUM 0.83 MG/DL (0.60-1.30); GFR ESTIMATED > 60
--- NOTE | 2019-11-01 08:42 | Diagnostic Imaging Report ---
PROCEDURE: CT abdomen and pelvis with contrast. TECHNIQUE: Multiple contiguous axial images were obtained through the abdomen and pelvis after administration of intravenous contrast. Auto Exposure Controls were utilized during the CT exam to meet ALARA standards for radiation dose reduction. INDICATION: Status post hysterectomy and bilateral salpingo-oophorectomy 6 weeks ago. Patient complains of lower abdominal pain and bloating after surgery. Correlation is made with prior CT from 08/10/2019. A small nodule in the left lower lobe is stable when compared to prior exam. Left lobe of the liver does contain a cyst which appears to be stable. No other liver mass is identified. Gallbladder is unremarkable. No biliary ductal dilatation is seen. The pancreas and spleen are unremarkable. No adrenal mass is detected. Small cortical renal low densities are noted, too small to characterize but likely cysts. The aorta is non-aneurysmal. There is a retroaortic left renal vein, a normal variant. Bowel loops are normal caliber and appear nonobstructive. There is significant diverticulosis of the sigmoid colon. In addition, there is some mild inflammatory changes adjacent to sigmoid colon near the junction with the descending colon, perhaps owing to some mild diverticulitis. No definite microperforation or abscess formation is seen. There is no free fluid or fluid collection. The uterus and ovaries appear to be surgically absent. Previously noted cystic mass left adnexa has been surgically removed as well. No definite abdominal or pelvic lymphadenopathy is seen. Bladder is unremarkable. IMPRESSION: Findings suggestive of acute sigmoid diverticulitis. No abscess formation or bowel obstruction is identified. Dictated by: Dictated on workstation # [id number]
== END ==
LOC: RAD 07:22
PROVIDERS: ATTEND Obstetrics & Gynecology
DX: R10.2 Pelvic and perineal pain (principal); E11.9 Type 2 diabetes mellitus without complications; Z90.710 Acquired absence of both cervix and uterus; Z90.722 Acquired absence of ovaries, bilateral
CPT/HCPCS: 36415; 74177; 82565; 84520

== ENCOUNTER → 2020-10-23 | Outpatient (CLI) | payer MEDICARE ==
--- NOTE | 2020-10-23 15:19 | Diagnostic Imaging Report ---
INDICATION: Right clavicle swelling 2 views of the right clavicle show no fracture or dislocation. No osteolytic or osteoblastic abnormality seen. IMPRESSION: Negative right clavicle Dictated by: Dictated on workstation # [id number]
== END ==
LOC: RAD 14:23
PROVIDERS: ATTEND Nurse Practitioner
DX: M89.311 Hypertrophy of bone, right shoulder (principal)